=== PATIENT | male | born 1955 | race African-American/Black ===

== ENCOUNTER 2019-06-06 07:38 | Inpatient (IN) | payer OTHER ==
[~2019-06-06] VITALS: Ht 177.8 cm; Wt 96.2 kg
[2019-06-06] MEDS ORDERED: BUPIVACAINE MPF 0.5% W/EPI INJ 30 ML VIAL ONE (09:25)
[2019-06-06] MEDS ORDERED: BACITRACIN 50000 UNITS/VIAL ONE (09:25)
[2019-06-06] MEDS ORDERED: THROMBIN (BOVINE) 5,000 UNITS VIAL TP ONE (09:25)
[2019-06-06] MEDS ORDERED: HEMOSTATIC MATRIX 8 ML 1 EACH PAD MC ONE (09:25)
[2019-06-06] MEDS ORDERED: GELATIN SPONGE,ABSORBABLE 1 EA SPONGE TP ONE (09:25)
[2019-06-06] MEDS ORDERED: BUPIVACAINE 0.5 % PF 150 MG/30 ML VIAL ONE (09:25)
[2019-06-06] MEDS ORDERED: HEPARIN SODIUM, PORCINE 5000 UNITS/1 ML VIAL ONE (09:26)
[2019-06-06] MEDS ORDERED: MIDAZOLAM HCL 2 MG/2ML VIAL ONE (10:24)
[2019-06-06] MEDS ORDERED: FENTANYL PF 100MCG/2ML AMPUL ONE (10:26)
[2019-06-06] MEDS ORDERED: FENTANYL PF 250MCG/5ML AMPUL ONE (10:26)
[2019-06-06] MEDS ORDERED: MEPERIDINE HCL/PF 100 MG/ML DISP.SYRIN ONE (10:27)
[2019-06-06] MEDS ORDERED: FAMOTIDINE/PF INJ 20 MG/2 ML VIAL IV ONE (10:27)
[2019-06-06] MEDS ORDERED: ROCURONIUM BROMIDE 50 MG/5 ML ONE (10:28)
[2019-06-06] MEDS ORDERED: MORPHINE SULFATE/PF 10 MG/10ML (1MG/ML) AMPUL ONE (12:51)
[2019-06-06 14:55] VITALS: BP 133/73
--- NOTE | 2019-06-06 15:00 | NUR ---
MS RN NOTE RECEIVED PATIENT FROM OR WITH DX [id number] LAMINECTOMY UNDER CARE DR IRENE ROMERO DNP SURGEON DR FONG , ALERT , ORIENTED , ON DVT PUMPS , ON IVF ORDERED, LT WRIST HL INTACT AND FLUSHED WELL , WITH LYNN CATH TO GRAVITY WITH YELLOW COLOR URINE , HOSPITAL ORIENTATION DONE , ON2L NC NO SOB NOTED LOWER BACK WITH DRESSING INTACT , NO ACUTE BLEEDING NOTED , , NO C\O PAIN AT THIS TIME AWAITING ADMISSION ORDERS FROM DR IRENE ROMERO AND DR UREÑA PAIN MANAGEMENT ,BED IN LOWEST ABD LOCKED POSITION AND WILL [facility] TO MONITOR CALL LIGHT WITHIN REACH
[2019-06-06] MEDS: IV LR 1000 ML 1,000 ML IV PRN (15:14)
[2019-06-06] MEDS ORDERED: AMLO10TA4 PO (15:24)
[2019-06-06] MEDS ORDERED: BISO5TAB20 PO (15:24)
[2019-06-06] MEDS ORDERED: ATOR40TA PO (15:24)
[2019-06-06] MEDS ORDERED: DICL100G16 TP (15:24)
[2019-06-06] MEDS ORDERED: SILD20TA2 PO (15:24)
[2019-06-06] MEDS ORDERED: ALBU18HF2 IH (15:24)
[2019-06-06] MEDS ORDERED: TRAM50TA2 PO (15:24)
[2019-06-06] MEDS ORDERED: LISI-604 PO (15:24)
[2019-06-06] MEDS: DEXAMETHASONE SOD PHOSPHATE 4 MG/ML VIAL IV SCH ×2 (15:25→21:24)
[2019-06-06 15:30] VITALS: BP 135/73
--- NOTE | 2019-06-06 15:31 | NUR ---
ARIANE RN NOTE C\O SORE THROAT CALVIN WALL CLEANER AT BEDSIDE FOR IRENE ROMERO AWARE OF IT
[2019-06-06 16:00] VITALS: BP_SYST 136; BP_SYST 138; BP_DIAS 79
--- NOTE | 2019-06-06 16:00 | NUR ---
ARIANE RN NOTE PER IRENE ROMERO DNP OK TO HAVE DVT PUMP, NO ANTICOAGULANTS MEDS AT THIS TIME
[2019-06-06 16:30] VITALS: BP 142/78
[2019-06-06] MEDS: GABAPENTIN 300 MG CAPSULE PO SCH (16:49)
[2019-06-06] MEDS: METHOCARBAMOL (500MG) 500 MG TABLET PO SCH (16:52)
[2019-06-06] MEDS: TRAMADOL HCL 50 MG TABLET PO PRN ×2 (16:53→23:12)
--- NOTE | 2019-06-06 18:00 | NUR ---
ARIANE RN NOTE BP144/78 CALLED TO IRENE ROMERO DNP OK TO RESUME NORVASC AND LISINOPRIL FROM HOME MEDS, ORDER CARRIED OUT
--- NOTE | 2019-06-06 18:32 | NUR ---
robbi rn note still slight pain lower back ,called to Chema Grissom dnp ok to place ice pack prn on lower back ,order carried out
[2019-06-06] MEDS: MENTHOL/CETYLPYRD (CEPACOL) 1 LOZ LOZENGE PO PRN (18:46)
--- NOTE | 2019-06-06 19:08 | NUR ---
ARIANE RN NOTE ALL NEEDS ATTENDEDI,CE PACK IN PLACE, ON IVF ORDERED ,HAVING DINNER OK TO CHANGE TO SOFT DIET , CALL LIGHT WITHIN REACH , WITH LYNN CATH TO GRAVITY , NOT IN DISTRESS ,WILL MONITOR
[2019-06-06] MEDS ORDERED: ALBUTEROL FS 2.5 MG/0.5 ML VIAL.NEB NEB PRN (19:30)
[2019-06-06 20:00] VITALS: BP 134/72
[2019-06-06] MEDS: ANCEF 1 GM/50 ML D5W IV SCH ×2 (21:24)
[2019-06-06] MEDS ORDERED: ATORVASTATIN 40 MG TABLET PO SCH (22:00)
[2019-06-07] VITALS: BP 138/73
[2019-06-07] MEDS: TRAMADOL HCL 50 MG TABLET PO PRN ×4 (00:24→11:04)
[2019-06-07] MEDS: IV LR 1000 ML 1,000 ML IV PRN (03:49)
[2019-06-07] MEDS: ANCEF 1 GM/50 ML D5W IV SCH ×4 (03:59→12:19)
[2019-06-07 04:00] VITALS: BP 156/81
[2019-06-07] MEDS: DEXAMETHASONE SOD PHOSPHATE 4 MG/ML VIAL IV SCH (04:02)
[2019-06-07] MEDS: METHOCARBAMOL (500MG) 500 MG TABLET PO SCH ×2 (04:03→13:24)
[2019-06-07] MEDS: MENTHOL/CETYLPYRD (CEPACOL) 1 LOZ LOZENGE PO PRN ×2 (05:18→08:47)
--- NOTE | 2019-06-07 07:00 | NUR ---
RN INITIAL NOTE RECEIVED REPORT AT BEDSIDE. PATIENT WAS ASLEEP BUT EASILY AROUSABLE TO NAME AND TOUCH. PATIENT IS ALERTX4. NO COMPLAINS OF ANY PAIN AT THIS TIME. ON TELE MONITOR, SR/SB. HAS A LYNN CATHETER TO BE REMOVED TODAY ORDERED. HAS A LEFT WRIST #18 WITH LR AT 100 ML/HR. ULTRAM LAST GIVEN AT 2300. BED LOCKED AND IN LOWEST POSITION. CALL LIGHT WITHIN REACH. WILL CONTINUE TO MONITOR
[2019-06-07] MEDS: GABAPENTIN 300 MG CAPSULE PO SCH (08:45)
--- NOTE | 2019-06-07 08:47 | NUR ---
RN NOTE ONE OF THE PATIENT'S MEDICATION, ZEBETA 5MG IS FROM THE [facility]. CALLED PHARMACY THEY SAID THEY WILL BRING REPLACEMENTS
[2019-06-07 09:00] VITALS: BP 140/70
[2019-06-07] MEDS ORDERED: AMLODIPINE BESYLATE 10 MG TABLET PO SCH ×2 (09:00)
[2019-06-07] MEDS ORDERED: BISOPROLOL FUMARATE 5 MG TABLET PO SCH (09:00)
[2019-06-07] MEDS ORDERED: LISINOPRIL (20MG) 20 MG TABLET PO SCH ×2 (09:00)
--- NOTE | 2019-06-07 11:22 | NUR ---
RN NOTE PER PHARMACY, ALL THE ZEBETA 5MG ARE
--- NOTE | 2019-06-07 12:42 | NUR ---
RN NOTE PATIENT REQUESTING FOR TYLENOL AND MEDICATION FOR ACID REFLUX. PAGED DR GAONA, PER OK TO GIVE TYLENOL PRN AND PROTONIX PO 40 MG X1. ORDER CARRIED OUT
[2019-06-07] MEDS ORDERED: PANTOPRAZOLE 40 MG TABLET.DR PO ONE (13:00)
[2019-06-07] MEDS ORDERED: ACETAMINOPHEN 325 MG TABLET PO PRN (13:00)
--- NOTE | 2019-06-07 16:04 | NUR ---
CONVERTIBLE POWER SHOVEL OPERATOR NOTE PATIENT WAS DISCHARGED BY DR GAONA. NO COMPLAINS OF ANY PAIN NOR SOB AT THIS TIME. REMOVED ALL LINES, ALL ID BANDS. PATIENT AMBULATORY AND WAS SEEN BY PT BEFORE LEAVING. PATIENT USES A WALKER. WAS PICKED UP BY HIS . ALL BELONGINGS WITH HIM. PRESCRIPTION FROM DR ROSA WAS GIVEN TO THE PATIENT. ALL EXIT CARE GIVEN. EDUCATED PATIENT. WHEELED OUT BY THE BEAUTY CULTURIST.
== END 2019-06-07 15:45 | disposition home or self-care (01) | DRG 519 ==
LOC: DS 07:38 → MEDSG1 14:48 → TELE-TD 14:53 → TELE1 06-07 11:37
PROVIDERS: ADMIT Nurse Practitioner Acute Care; ATTEND Nurse Practitioner Acute Care
DX: M47.26 Other spondylosis with radiculopathy, lumbar region (principal); D68.69 Other thrombophilia; I10 Essential (primary) hypertension; E66.9 Obesity, unspecified; E11.65 Type 2 diabetes mellitus with hyperglycemia; Z68.29 Body mass index [BMI] 29.0-29.9, adult; Z96.651 Presence of right artificial knee joint; Z96.643 Presence of artificial hip joint, bilateral; Z83.3 Family history of diabetes mellitus; Z82.49 Family history of ischemic heart disease and other diseases of the circulatory system; Z79.51 Long term (current) use of inhaled steroids; G89.29 Other chronic pain; Z79.899 Other long term (current) drug therapy; M51.26 Other intervertebral disc displacement, lumbar region; M48.061 Spinal stenosis, lumbar region without neurogenic claudication; K21.9 Gastro-esophageal reflux disease without esophagitis; E78.00 Pure hypercholesterolemia, unspecified; G96.12 Meningeal adhesions (cerebral) (spinal)
CPT/HCPCS: 36415; 72020-TC; 82962-TC; 86850-TC; 86921-TC; 87081-TC; 97116-TC; 97530-TC; G0378; J0690; J1100; J1644; J2175; J2250; J2274; J2405; J2704; J2710; J2765; J3010; J3490; J7060; J7120